=== PATIENT | male | born 1940 | race Caucasian/White ===

== ENCOUNTER 2019-11-02 13:56 | Emergency (ER) | payer OTHER ==
[~2019-11-02] VITALS: Ht 177.8 cm; Wt 79.4 kg
[2019-11-02 14:00] VITALS: BP_SYST 140
--- NOTE | 2019-11-02 16:10 | NUR ---
Patient to ER bed 03 to gown for evaluation. Side rails up. Report given to REGINA WILLIAMSON
--- NOTE | 2019-11-02 16:11 | NUR ---
Patient BIBA from [facility] s/o abrasion after an unwitnessed fall. Patient denies any SOB or pain. No signs or symptoms of acute distress noted.
--- NOTE | 2019-11-02 16:12 | NUR ---
ER Dr. Andrade at bedside examining patient.
[2019-11-02 16:44] LABS: BASOPHILS % (AUTO) 0.2 % (0.0-2.0); EOSINOPHILS % (AUTO) 0.3 % (0.0-4.0); HEMATOCRIT 33.7 % (36-54); HEMOGLOBIN 10.9 g/dL (14.0-18.0); LYMPHOCYTES # (AUTO) 2.7 K/uL (1.0-5.5); LYMPHOCYTES % (AUTO) 37.5 % (20.5-51.5); MEAN CORPUSCULAR HEMOGLOBIN 27 pg (27-31); MEAN CORPUSCULAR HGB CONC 32 % (32-36); MEAN CORPUSCULAR VOLUME 83 fL (79.0-98.0); MONOCYTES # (AUTO) 0.5 K/uL (0.0-1.0); MONOCYTES % (AUTO) 6.4 % (1.7-9.3); NEUTROPHILS % (AUTO) 55.6 % (40.0-70.0); PLATELET COUNT (AUTO) 300 K/uL (130-430); RED BLOOD CELL COUNT(AUTO) 4.06 MIL/uL (4.2-6.2); RED CELL DISTRIBUTION WIDTH 18.1 % (9.0-15.0); WHITE BLOOD COUNT (AUTO) 7.1 K/uL (4.8-10.8)
[2019-11-02] MEDS ORDERED: LIDOCAINE/EPI 2% 1:100000 20 ML VIAL INJ ONE (16:45)
[2019-11-02 16:57] LABS: INR 1.1 (0.80-1.20); PROTHROMBIN TIME 10.9 SECS (9.5-12.5)
[2019-11-02 17:02] LABS: ANION GAP 4 (5-15); CALCIUM 7.5 mg/dL (8.4-11.0); CHLORIDE 102 mmol/L (98-107); GLUCOSE 104 mg/dL (70-99); POTASSIUM 4.1 mmol/L (3.5-5.1); SODIUM SERUM 134 mmol/L (136-145); UREA NITROGEN, BLOOD 11 mg/dL (8-21)
[2019-11-02 17:09] LABS: ALANINE AMINOTRANSFERASE 23 U/L (12-78); ALBUMIN 1.1 g/dL (3.4-4.8); ASPARTATE AMINOTRANSFERASE 25 U/L (10-37); FREE T4 (FREE THYROXINE) 1.3 ng/dl (0.8-1.5); TOTAL BILIRUBIN 0.4 mg/dL (0.0-1.0)
[2019-11-02 17:13] LABS: ALCOHOL, BLOOD < 3 mg/dL (<10)
[2019-11-02] MEDS ORDERED: NS 500 ML IV ONE (17:45)
--- NOTE | 2019-11-02 18:00 | NUR ---
Patient to be transferred back to [facility]. [facility] has been called for transfer. ETA is [id number].
[2019-11-02] MEDS ORDERED: BACITRACIN 1 GM OINT TP ONE (18:44)
--- NOTE | 2019-11-02 19:12 | NUR ---
Endorsed bedside report to Juanpablo TAPIA for continuation of care.
--- NOTE | 2019-11-02 19:22 | NUR ---
Lactic acid is 5.2. Dr. Andrade is aware. Per MD, patient is stable and will be transferred back to [facility] and there are no signs of sepsis.
[2019-11-02 20:10] VITALS: BP_SYST 144
--- NOTE | 2019-11-02 20:10 | NUR ---
Patient given written and verbal discharge instructions and verbalizes understanding. ER MD discussed with patient the results and treatment provided. Patient in stable condition. ID arm band removed. Patient educated on pain management and to follow up with PMD. Pain Scale 0/10 Opportunity for questions provided and answered.
== END 2019-11-02 20:10 | disposition home or self-care (01) ==
LOC: SED 13:56
DX: S01.112A Laceration without foreign body of left eyelid and periocular area, initial encounter (principal); I25.10 Atherosclerotic heart disease of native coronary artery without angina pectoris; W18.39XA Other fall on same level, initial encounter; Y93.89 Activity, other specified; Y92.89 Other specified places as the place of occurrence of the external cause; Y99.8 Other external cause status
CPT/HCPCS: 12013; 36415; 70450; 71045; 74018; 80053; 82140; 83605; 83880; 84439; 84484; 85025; 85610; 87040; 93005; 99284; G0482; J7040

== ENCOUNTER 2020-04-23 03:45 | Inpatient (IN) | payer OTHER, SELFPAY ==
[~2020-04-23] VITALS: Ht 182.9 cm; Wt 54.0 kg
[2020-04-23 03:56] VITALS: BP_SYST 111
[2020-04-23] MEDS ORDERED: BACL10TA PO (04:06)
[2020-04-23] MEDS ORDERED: LIP10 PO (04:06)
[2020-04-23] MEDS ORDERED: CEL20 PO ×2 (04:07→04:33)
[2020-04-23] MEDS ORDERED: MOM PO (04:33)
[2020-04-23] MEDS ORDERED: MELA3TAB64 PO (04:33)
[2020-04-23] MEDS ORDERED: FURO20TA4 PO (04:33)
[2020-04-23] MEDS ORDERED: NITR0.4T47 SL (04:33)
[2020-04-23] MEDS ORDERED: MULT-1184 PO (04:33)
[2020-04-23] MEDS ORDERED: PROMOD PO (04:33)
[2020-04-23] MEDS ORDERED: POTASSIUM CHLORIDE PO (04:33)
[2020-04-23] MEDS ORDERED: NA P133E41 RC (04:33)
[2020-04-23] MEDS ORDERED: NIAC500T23 PO (04:33)
[2020-04-23] MEDS ORDERED: MAGN200T9 PO (04:33)
[2020-04-23] MEDS ORDERED: DOCU-192 PO (04:33)
[2020-04-23] MEDS ORDERED: BISCOLAX RC (04:33)
[2020-04-23] MEDS ORDERED: MIRT15TA3 PO (04:33)
[2020-04-23] MEDS ORDERED: SODI1TAB3 PO (04:34)
[2020-04-23] MEDS ORDERED: TRAM50TA2 PO (04:34)
[2020-04-23] MEDS ORDERED: SENN8.6T19 PO (04:34)
[2020-04-23] MEDS ORDERED: NACL 0.9% 1,000 ML IV ONE ×2 (04:44→07:30)
[2020-04-23] MEDS ORDERED: REM15 PO (04:57)
[2020-04-23] MEDS ORDERED: ACET-2165 PO (04:57)
[2020-04-23] MEDS ORDERED: MORPHINE 2 MG/ML INJ. SYRINGE IVP ONE (05:30)
[2020-04-23 06:36] LABS: ANION GAP 10 (5-15); CALCIUM 8.7 mg/dL (8.4-11.0); CHLORIDE 107 mmol/L (98-107); CREATININE 2.05 mg/dL (0.55-1.30); GLUCOSE 224 mg/dL (70-99); POTASSIUM 4.1 mmol/L (3.5-5.1); SODIUM SERUM 140 mmol/L (136-145); UREA NITROGEN, BLOOD 42 mg/dL (8-21)
[2020-04-23 06:38] LABS: INR 1.3 (0.80-1.20); PROTHROMBIN TIME 12.5 SECS (9.5-12.5)
[2020-04-23 06:39] LABS: BASOPHILS % (AUTO) 0.2 % (0.0-2.0); HEMATOCRIT 40.7 % (36-54); HEMOGLOBIN 12.7 g/dL (14.0-18.0); LYMPHOCYTES # (AUTO) 0.7 K/uL (1.0-5.5); LYMPHOCYTES % (AUTO) 18.4 % (20.5-51.5); MEAN CORPUSCULAR HEMOGLOBIN 26 pg (27-31); MEAN CORPUSCULAR HGB CONC 31 % (32-36); MEAN CORPUSCULAR VOLUME 84 fL (79.0-98.0); MONOCYTES # (AUTO) 0.7 K/uL (0.0-1.0); MONOCYTES % (AUTO) 16.9 % (1.7-9.3); NEUTROPHILS # (AUTO) 2.6 K/uL (1.8-7.7); NEUTROPHILS % (AUTO) 64.5 % (40.0-70.0); PLATELET COUNT (AUTO) 131 K/uL (130-430); RED BLOOD CELL COUNT(AUTO) 4.85 MIL/uL (4.2-6.2); RED CELL DISTRIBUTION WIDTH 21.1 % (9.0-15.0)
[2020-04-23 06:50] LABS: ALANINE AMINOTRANSFERASE 27 U/L (12-78); AMYLASE 92 U/L (0-100); ASPARTATE AMINOTRANSFERASE 36 U/L (10-37); LIPASE 162 U/L (73-393); TOTAL BILIRUBIN 0.5 mg/dL (0.0-1.0)
[2020-04-23] MEDS ORDERED: MORPHINE 4 MG/ML INJ. SYRINGE IVP ONE (07:15)
[2020-04-23] MEDS ORDERED: cefTRIAXone 1 GM in D5W 50 ML IV ONE (07:30)
[2020-04-23] MEDS ORDERED: cefTRIAXone 1 GM VIAL ONE (08:16)
[2020-04-23] MEDS ORDERED: LIDOCAINE 1% 10 MG/ML, 20 ML MDV SUBCUT ONE (08:30)
[2020-04-23 09:30] VITALS: BP_SYST 110
[2020-04-23] MEDS ORDERED: METOCLOPRAMIDE HCL 10 MG/2 ML VIAL IVP PRN (11:00)
[2020-04-23] MEDS ORDERED: MORPHINE 4 MG/ML INJ. SYRINGE IVP PRN (11:00)
[2020-04-23] MEDS ORDERED: ACETAMINOPHEN 325 MG TABLET PO PRN ×2 (11:00→11:15)
[2020-04-23] MEDS ORDERED: ONDANSETRON HCL 4 MG/2 ML VIAL IVP PRN (11:00)
[2020-04-23] MEDS ORDERED: LEVOFLOXACIN 500 MG/D5W 100 ML IV ONE (11:00)
[2020-04-23] MEDS ORDERED: metroNIDAZOLE 500 mg/NS 100 ML IV ONE (11:00)
[2020-04-23 11:37] LABS: HEMOGLOBIN 11.8 g/dL (14.0-18.0)
[2020-04-23] MEDS: NACL 0.9% 1,000 ML IV SCH ×2 (11:52→21:26)
[2020-04-23 12:00] VITALS: BP_SYST 101
[2020-04-23 16:46] VITALS: BP_SYST 96
[2020-04-23 19:51] LABS: HEMATOCRIT 37.1 % (36-54); HEMOGLOBIN 11.5 g/dL (14.0-18.0)
[2020-04-23 20:00] VITALS: BP_SYST 94
[2020-04-23] MEDS: ATORVASTATIN 10 MG TABLET PO SCH (21:25)
[2020-04-23] MEDS: metroNIDAZOLE 500 mg/NS 100 ML IV SCH (21:26)
[2020-04-24 00:54] VITALS: BP_SYST 103
[2020-04-24 03:53] LABS: BASOPHILS % (AUTO) 0.1 % (0.0-2.0); HEMOGLOBIN 11.2 g/dL (14.0-18.0); LYMPHOCYTES # (AUTO) 1.2 K/uL (1.0-5.5); MEAN CORPUSCULAR HGB CONC 31 % (32-36); MONOCYTES # (AUTO) 0.7 K/uL (0.0-1.0)
[2020-04-24 04:11] LABS: ALANINE AMINOTRANSFERASE 19 U/L (12-78); ALBUMIN 1.6 g/dL (3.4-4.8); ANION GAP 10 (5-15); ASPARTATE AMINOTRANSFERASE 26 U/L (10-37); CALCIUM 7.5 mg/dL (8.4-11.0); CHLORIDE 111 mmol/L (98-107); CREATININE 1.64 mg/dL (0.55-1.30); GLUCOSE 104 mg/dL (70-99); POTASSIUM 4.1 mmol/L (3.5-5.1); SODIUM SERUM 142 mmol/L (136-145); TOTAL BILIRUBIN 0.5 mg/dL (0.0-1.0); UREA NITROGEN, BLOOD 45 mg/dL (8-21)
[2020-04-24 04:49] LABS: HEMATOCRIT 35.7 % (36-54); LYMPHOCYTES % (AUTO) 24.1 % (20.5-51.5); MEAN CORPUSCULAR HEMOGLOBIN 27 pg (27-31); MEAN CORPUSCULAR VOLUME 85 fL (79.0-98.0); MONOCYTES % (AUTO) 12.8 % (1.7-9.3); NEUTROPHILS # (AUTO) 3.2 K/uL (1.8-7.7); PLATELET COUNT (AUTO) 96 K/uL (130-430)
[2020-04-24 04:56] LABS: WHITE BLOOD COUNT (AUTO) 5.1 K/uL (4.8-10.8)
[2020-04-24] MEDS: metroNIDAZOLE 500 mg/NS 100 ML IV SCH ×3 (05:45→22:09)
[2020-04-24 08:00] VITALS: BP_SYST 102
[2020-04-24] MEDS: CITALOPRAM HYDROBROMIDE 20 MG TABLET PO SCH (09:45)
[2020-04-24 11:02] LABS: HEMATOCRIT 34.5 % (36-54); HEMOGLOBIN 10.8 g/dL (14.0-18.0)
[2020-04-24] MEDS: NACL 0.9% 1,000 ML IV SCH (11:55)
[2020-04-24 12:10] VITALS: BP_SYST 101
[2020-04-24 16:24] VITALS: BP_SYST 96
[2020-04-24 19:36] LABS: HEMOGLOBIN 10.5 g/dL (14.0-18.0)
[2020-04-24 20:00] VITALS: BP_SYST 99
[2020-04-24] MEDS: ATORVASTATIN 10 MG TABLET PO SCH (22:08)
[2020-04-24] MEDS: NYSTATIN 15 GM TOPICAL POWDER TP SCH (22:49)
[2020-04-25 00:37] VITALS: BP_SYST 98
[2020-04-25] MEDS: NACL 0.9% 1,000 ML IV SCH ×2 (01:15→14:44)
[2020-04-25] MEDS: metroNIDAZOLE 500 mg/NS 100 ML IV SCH ×3 (06:11→21:08)
[2020-04-25 06:57] LABS: BASOPHILS % (AUTO) 0.2 % (0.0-2.0); EOSINOPHILS % (AUTO) 0.1 % (0.0-4.0); HEMATOCRIT 31.6 % (36-54); HEMOGLOBIN 9.9 g/dL (14.0-18.0); LYMPHOCYTES # (AUTO) 1.5 K/uL (1.0-5.5); LYMPHOCYTES % (AUTO) 17.1 % (20.5-51.5); MEAN CORPUSCULAR HEMOGLOBIN 27 pg (27-31); MEAN CORPUSCULAR HGB CONC 31 % (32-36); MEAN CORPUSCULAR VOLUME 85 fL (79.0-98.0); MONOCYTES # (AUTO) 0.7 K/uL (0.0-1.0); MONOCYTES % (AUTO) 8.3 % (1.7-9.3); NEUTROPHILS # (AUTO) 6.4 K/uL (1.8-7.7); NEUTROPHILS % (AUTO) 74.3 % (40.0-70.0); PLATELET COUNT (AUTO) 87 K/uL (130-430); RED BLOOD CELL COUNT(AUTO) 3.71 MIL/uL (4.2-6.2); RED CELL DISTRIBUTION WIDTH 20.8 % (9.0-15.0); WHITE BLOOD COUNT (AUTO) 8.7 K/uL (4.8-10.8)
[2020-04-25 07:09] LABS: ALANINE AMINOTRANSFERASE 24 U/L (12-78); ALBUMIN 1.6 g/dL (3.4-4.8); ANION GAP 14 (5-15); ASPARTATE AMINOTRANSFERASE 25 U/L (10-37); CALCIUM 7.9 mg/dL (8.4-11.0); CHLORIDE 114 mmol/L (98-107); GLUCOSE 80 mg/dL (70-99); SODIUM SERUM 145 mmol/L (136-145); TOTAL BILIRUBIN 0.5 mg/dL (0.0-1.0); UREA NITROGEN, BLOOD 52 mg/dL (8-21)
[2020-04-25 08:00] VITALS: BP_SYST 94
[2020-04-25] MEDS: CITALOPRAM HYDROBROMIDE 20 MG TABLET PO SCH (08:53)
[2020-04-25] MEDS: NYSTATIN 15 GM TOPICAL POWDER TP SCH ×2 (09:00→20:10)
[2020-04-25] MEDS: MORPHINE 2 MG/ML INJ. SYRINGE IVP PRN ×2 (11:25→16:18)
[2020-04-25] MEDS: LEVOFLOXACIN 500 MG/D5W 100 ML IV SCH (11:28)
[2020-04-25 12:20] VITALS: BP_SYST 101
[2020-04-25 16:23] VITALS: BP_SYST 98
[2020-04-25 19:09] LABS: HEMATOCRIT 30.4 % (36-54); HEMOGLOBIN 9.5 g/dL (14.0-18.0)
[2020-04-25 20:00] VITALS: BP_SYST 91
[2020-04-25] MEDS: ATORVASTATIN 10 MG TABLET PO SCH (20:09)
[2020-04-25] MEDS ORDERED: HYDROcodone/ACETAMIN 5-325 MG TAB (NORCO/ VICODIN) PO PRN (21:45)
[2020-04-26 01:17] VITALS: BP_SYST 91
[2020-04-26 03:00] VITALS: BP_SYST 80
[2020-04-26] MEDS ORDERED: NS 500 ML IV ONE (03:15)
[2020-04-26] MEDS: NACL 0.9% 1,000 ML IV SCH ×2 (03:42→09:31)
[2020-04-26] MEDS: metroNIDAZOLE 500 mg/NS 100 ML IV SCH ×2 (05:43→13:54)
[2020-04-26 05:45] VITALS: BP_SYST 100
[2020-04-26 06:26] LABS: ANION GAP 8 (5-15); C-REACTIVE PROTEIN QUANT 9.5 mg/dL (0-0.5); CALCIUM 7.2 mg/dL (8.4-11.0); CHLORIDE 113 mmol/L (98-107); CREATININE 1.59 mg/dL (0.55-1.30); GLUCOSE 144 mg/dL (70-99); POTASSIUM 3.3 mmol/L (3.5-5.1); SODIUM SERUM 141 mmol/L (136-145); UREA NITROGEN, BLOOD 46 mg/dL (8-21)
[2020-04-26 06:43] LABS: BASOPHILS % (AUTO) 0.1 % (0.0-2.0); EOSINOPHILS # (AUTO) 0.1 K/uL (0.0-0.4); EOSINOPHILS % (AUTO) 1.5 % (0.0-4.0); HEMATOCRIT 28.9 % (36-54); HEMOGLOBIN 9.1 g/dL (14.0-18.0); LYMPHOCYTES # (AUTO) 1.3 K/uL (1.0-5.5); LYMPHOCYTES % (AUTO) 22.4 % (20.5-51.5); MEAN CORPUSCULAR HEMOGLOBIN 27 pg (27-31); MEAN CORPUSCULAR HGB CONC 31 % (32-36); MEAN CORPUSCULAR VOLUME 85 fL (79.0-98.0); MONOCYTES # (AUTO) 0.4 K/uL (0.0-1.0); MONOCYTES % (AUTO) 7.4 % (1.7-9.3); NEUTROPHILS % (AUTO) 68.6 % (40.0-70.0); PLATELET COUNT (AUTO) 74 K/uL (130-430); RED BLOOD CELL COUNT(AUTO) 3.41 MIL/uL (4.2-6.2); RED CELL DISTRIBUTION WIDTH 21.1 % (9.0-15.0); WHITE BLOOD COUNT (AUTO) 5.8 K/uL (4.8-10.8)
[2020-04-26 08:00] VITALS: BP_SYST 93
[2020-04-26 08:24] LABS: ERYTHROCYTE SEDIMENTATION RATE 10 MM/HR (0-15)
[2020-04-26] MEDS: CITALOPRAM HYDROBROMIDE 20 MG TABLET PO SCH (09:25)
[2020-04-26] MEDS: NYSTATIN 15 GM TOPICAL POWDER TP SCH (09:27)
[2020-04-26] MEDS: LEVOFLOXACIN 500 MG/D5W 100 ML IV SCH (11:53)
[2020-04-26 12:36] VITALS: BP_SYST 99
[2020-04-26] MEDS ORDERED: POTASSIUM CHLORIDE 20 MEQ TAB.PRT.SR PO ONE (13:00)
[2020-04-26 17:13] VITALS: BP_SYST 96
== END 2020-04-26 21:00 | DRG 391 ==
LOC: SED 03:45 → EEVIPCON 09:04 → SMU 09:04
PROVIDERS: ADMIT Internal Medicine Hospice and Palliative Medicine; ATTEND Internal Medicine Hospice and Palliative Medicine
DX: K52.9 Noninfective gastroenteritis and colitis, unspecified (principal); E43 Unspecified severe protein-calorie malnutrition; J18.9 Pneumonia, unspecified organism; Z68.1 Body mass index [BMI] 19.9 or less, adult; J91.8 Pleural effusion in other conditions classified elsewhere; K92.1 Melena; K56.7 Ileus, unspecified; N18.9 Chronic kidney disease, unspecified; D69.6 Thrombocytopenia, unspecified; I25.10 Atherosclerotic heart disease of native coronary artery without angina pectoris; Z95.1 Presence of aortocoronary bypass graft; Z79.899 Other long term (current) drug therapy; Z03.818 Encounter for observation for suspected exposure to other biological agents ruled out
CPT/HCPCS: 36415; 80048; 80053; 82150-TC; 83605; 83690-TC; 85018-TC; 85025; 85610-TC; 85651-TC; 86140; 87040-TC; 87081; 93005; 96361; 96365; 96375; 99285; J0696; J1956; J2270; J2405; J3490; J7030; J7040; U0003-CS

== ENCOUNTER 2020-05-01 22:31 | Inpatient (IN) | payer OTHER, SELFPAY ==
[~2020-05-01] VITALS: Ht 182.9 cm; Wt 60.3 kg
[2020-05-01 22:31] VITALS: BP_SYST 100
[~2020-05-01 22:31] MED LIST: ACET-2165 PO; BACL10TA PO; BISCOLAX RC; CEL20 PO; DOCU-192 PO; FURO20TA4 PO; LIP10 PO; MAGN200T9 PO; MELA3TAB64 PO; MIRT15TA3 PO; MOM PO; MULT-1184 PO; NA P133E41 RC; NIAC500T23 PO; NITR0.4T47 SL; POTASSIUM CHLORIDE PO; PROMOD PO; REM15 PO; SENN8.6T19 PO; SODI1TAB3 PO; TRAM50TA2 PO
[2020-05-01] MEDS ORDERED: FAMOTIDINE PF 20 MG/2 ML VIAL IVP ONE (22:45)
[2020-05-02] VITALS (7 sets, daily range): BP systolic 57–119
[2020-05-02 00:14] LABS: BASOPHILS % (AUTO) 0.2 % (0.0-2.0); EOSINOPHILS % (AUTO) 0.1 % (0.0-4.0); HEMATOCRIT 34.2 % (36-54); HEMOGLOBIN 10.4 g/dL (14.0-18.0); MEAN CORPUSCULAR HEMOGLOBIN 26 pg (27-31); MEAN CORPUSCULAR HGB CONC 31 % (32-36); MEAN CORPUSCULAR VOLUME 86 fL (79.0-98.0); MONOCYTES # (AUTO) 0.8 K/uL (0.0-1.0); MONOCYTES % (AUTO) 4.6 % (1.7-9.3); NEUTROPHILS % (AUTO) 84.1 % (40.0-70.0); PLATELET COUNT (AUTO) 117 K/uL (130-430); RED BLOOD CELL COUNT(AUTO) 3.99 MIL/uL (4.2-6.2); RED CELL DISTRIBUTION WIDTH 20.5 % (9.0-15.0); WHITE BLOOD COUNT (AUTO) 17.9 K/uL (4.8-10.8)
[2020-05-02 00:23] LABS: ANION GAP 10 (5-15); CALCIUM 7.2 mg/dL (8.4-11.0); CHLORIDE 111 mmol/L (98-107); CREATININE 1.67 mg/dL (0.55-1.30); GLUCOSE 140 mg/dL (70-99); SODIUM SERUM 139 mmol/L (136-145); UREA NITROGEN, BLOOD 42 mg/dL (8-21)
[2020-05-02 00:28] LABS: INR 1.8 (0.80-1.20)
[2020-05-02] MEDS ORDERED: PIPERACILLIN/TAZO 3.375 GM in NS 50 ML IV ONE (00:30)
[2020-05-02] MEDS ORDERED: NACL 0.9% 1,000 ML IV ONE ×3 (00:30→22:10)
[2020-05-02 00:40] LABS: ALANINE AMINOTRANSFERASE 63 U/L (12-78); ALBUMIN 1.6 g/dL (3.4-4.8); ASPARTATE AMINOTRANSFERASE 130 U/L (10-37); LIPASE 925 U/L (73-393); TOTAL BILIRUBIN 0.4 mg/dL (0.0-1.0)
[2020-05-02] MEDS ORDERED: VANCOMYCIN HCL 1,000 MG in NS 250 ML IV ONE (00:45)
[2020-05-02] MEDS ORDERED: PIPERACILLIN/TAZOBACTAM 3.375 GM/VIAL (ZOSYN) IV ONE ×2 (00:48→06:24)
[2020-05-02] MEDS ORDERED: VANCOMYCIN HCL 1000 MG/VIAL IV ONE (01:00)
[2020-05-02] MEDS ORDERED: MORPHINE 2 MG/ML INJ. SYRINGE IVP ONE (01:00)
[2020-05-02] MEDS ORDERED: HYOS0.1275 PO (01:05)
[2020-05-02] MEDS ORDERED: ONDA4TAB5 PO (01:05)
[2020-05-02] MEDS ORDERED: LACT1CAP61 PO (01:13)
[2020-05-02] MEDS ORDERED: DRON5CAP15 PO (01:13)
[2020-05-02] MEDS ORDERED: FLA250 PO (01:13)
[2020-05-02] MEDS ORDERED: FURO-150 PO (01:13)
[2020-05-02 01:17] LABS: BILIRUBIN,URINE 2+ (NEGATIVE); BLOOD, URINE NEGATIVE (NEGATIVE); CLARITY/URINE SL CLOUDY (CLEAR); COLOR,URINE YELLOW (YELLOW); GLUCOSE,URINE NEGATIVE (NEGATIVE); KETONES,URINE NEGATIVE (NEGATIVE); LEUKOCYTE ESTERASE ,URINE TRACE (NEGATIVE); NITRITE, URINE POSITIVE (NEGATIVE); PROTEIN URINE TRACE (NEGATIVE); UROBILINOGEN,URINE 0.2 (0.2-1.0)
[2020-05-02] MEDS ORDERED: ONDANSETRON HCL 4 MG/2 ML VIAL IVP PRN (01:30)
[2020-05-02] MEDS ORDERED: ACETAMINOPHEN 325 MG TABLET PO PRN (01:30)
[2020-05-02] MEDS ORDERED: MILK OF MAGNESIA 30 ML UDC PO SCH (01:45)
[2020-05-02] MEDS: metroNIDAZOLE 250 MG TABLET PO SCH ×4 (01:45→21:06)
[2020-05-02] MEDS ORDERED: MORPHINE 2 MG/ML INJ. SYRINGE IVP PRN (01:45)
[2020-05-02] MEDS ORDERED: BACLOFEN 10 MG TABLET PO PRN (01:45)
[2020-05-02] MEDS ORDERED: ONDANSETRON 4 MG ODT TAB PO PRN (01:45)
[2020-05-02] MEDS ORDERED: NITROGLYCERIN 0.4 MG TAB.SUBL SL PRN (01:45)
[2020-05-02 01:52] LABS: PROTHROMBIN TIME 17.9 SECS (9.5-12.5)
[2020-05-02 02:02] LABS: RBC,URINE 0-3 /HPF (0-3)
[2020-05-02 02:07] LABS: BACTERIA,URINE MODERATE /HPF (None Seen); CALCIUM OXALATE CRYSTALS,UR 0-10 /HPF (None Seen)
[2020-05-02] MEDS: PIPERACILLIN/TAZO 3.375/DEX-IS 50 ML IV SCH ×3 (06:39→17:33)
[2020-05-02 07:42] LABS: HEMATOCRIT 33.9 % (36-54); HEMOGLOBIN 10.2 g/dL (14.0-18.0); LYMPHOCYTES # (AUTO) 1.7 K/uL (1.0-5.5); LYMPHOCYTES % (AUTO) 7.3 % (20.5-51.5); MEAN CORPUSCULAR HEMOGLOBIN 26 pg (27-31); MEAN CORPUSCULAR HGB CONC 30 % (32-36); MEAN CORPUSCULAR VOLUME 87 fL (79.0-98.0); MONOCYTES # (AUTO) 0.7 K/uL (0.0-1.0); MONOCYTES % (AUTO) 2.9 % (1.7-9.3); NEUTROPHILS # (AUTO) 21.5 K/uL (1.8-7.7); NEUTROPHILS % (AUTO) 89.8 % (40.0-70.0); PLATELET COUNT (AUTO) 102 K/uL (130-430); RED BLOOD CELL COUNT(AUTO) 3.92 MIL/uL (4.2-6.2); RED CELL DISTRIBUTION WIDTH 20.2 % (9.0-15.0); WHITE BLOOD COUNT (AUTO) 23.9 K/uL (4.8-10.8)
[2020-05-02 07:59] LABS: ANION GAP 14 (5-15); CALCIUM 7.1 mg/dL (8.4-11.0); CHLORIDE 112 mmol/L (98-107); CREATININE 1.85 mg/dL (0.55-1.30); GLUCOSE 121 mg/dL (70-99); POTASSIUM 4.6 mmol/L (3.5-5.1); SODIUM SERUM 141 mmol/L (136-145); UREA NITROGEN, BLOOD 44 mg/dL (8-21)
[2020-05-02 08:03] LABS: ALANINE AMINOTRANSFERASE 60 U/L (12-78); ALBUMIN 1.6 g/dL (3.4-4.8); ASPARTATE AMINOTRANSFERASE 120 U/L (10-37); HDL CHOLESTEROL 13 mg/dL (>45); LDL CHOLESTEROL 8 mg/dL (<100); TOTAL BILIRUBIN 0.6 mg/dL (0.0-1.0); TRIGLYCERIDES 105 mg/dL (30-150)
[2020-05-02] MEDS: PANTOPRAZOLE SODIUM 40 MG/VIAL (PROTONIX) IVP SCH ×2 (08:07→21:07)
[2020-05-02] MEDS: DOCUSATE SODIUM 100 MG CAPSULE PO SCH ×2 (08:07→21:06)
[2020-05-02] MEDS: DRONABINOL 2.5 MG CAPSULE PO SCH ×2 (08:07→21:06)
[2020-05-02 08:25] LABS: CHOLESTEROL < 50 mg/dL (<200)
[2020-05-02] MEDS ORDERED: NS 500 ML IV ONE (08:30)
[2020-05-02] MEDS: HEPARIN SODIUM,PORCINE 5000 UNITS/ML VIAL SUBCUT SCH ×2 (10:13→21:10)
[2020-05-02] MEDS: NACL 0.9% 1,000 ML IV SCH ×2 (10:14→17:33)
[2020-05-02] MEDS ORDERED: BALSAM PERU/CASTOR OIL 60 GM OINT...G. TP ONE (18:30)
[2020-05-02] MEDS ORDERED: MIRTAZAPINE 15 MG TABLET PO SCH (21:00)
[2020-05-02] MEDS ORDERED: ATORVASTATIN 10 MG TABLET PO SCH (21:00)
[2020-05-02] MEDS ORDERED: MELATONIN 3 MG TABLET PO SCH (21:00)
[2020-05-02 23:52] LABS: ANION GAP 16 (5-15); CREATININE 1.56 mg/dL (0.55-1.30); GLUCOSE 54 mg/dL (70-99); SODIUM SERUM 145 mmol/L (136-145); UREA NITROGEN, BLOOD 36 mg/dL (8-21)
[2020-05-03] VITALS (11 sets, daily range): BP systolic 59–148
[2020-05-03] MEDS ORDERED: SODIUM BICARBONATE 8.4% JECT 150 MEQ in D5W 1,000 ML IV SCH ×2
[2020-05-03] MEDS ORDERED: SODIUM BICARBONATE 8.4% JECT 50 MEQ/50 ML SYRINGE IVP ONE
[2020-05-03] MEDS ORDERED: NOREPINEPHRINE 4 MG/4 ML VIAL IV ONE ×3 (00:07→05:19)
[2020-05-03 00:09] LABS: ALANINE AMINOTRANSFERASE 446 U/L (12-78); ASPARTATE AMINOTRANSFERASE 1780 U/L (10-37); TOTAL BILIRUBIN 0.5 mg/dL (0.0-1.0)
[2020-05-03 00:11] LABS: CHLORIDE 120 mmol/L (98-107); POTASSIUM 5.8 mmol/L (3.5-5.1)
[2020-05-03] MEDS: NOREPINEPHRINE BITARTRATE 4 MG in D5W 246 ML IV PRN ×2 (00:22→05:14)
[2020-05-03] MEDS ORDERED: SODIUM BICARBONATE 8.4% JECT 50 MEQ/50 ML SYRINGE ONE (00:24)
[2020-05-03] MEDS ORDERED: MIDAZOLAM HCL IN 0.9 % NACL/PF 50 ML IV PRN (01:30)
[2020-05-03] MEDS ORDERED: MIDAZOLAM HCL IN 0.9 % NACL/PF 50 ML IV ONE (01:37)
[2020-05-03] MEDS: NACL 0.9% 1,000 ML IV SCH (04:30)
[2020-05-03] MEDS: PIPERACILLIN/TAZO 3.375/DEX-IS 50 ML IV SCH ×2 (05:13)
[2020-05-03] MEDS: metroNIDAZOLE 250 MG TABLET PO SCH (05:15)
[2020-05-03] MEDS ORDERED: EPINEPHrine JECT 0.1 MG/ML SYR IVP ONE (07:51)
[2020-05-03] MEDS ORDERED: NORMAL SALINE 10 ML VIAL IVP ONE (07:51)
[2020-05-03] MEDS ORDERED: PHENYLEPHRINE HCL 30 MG in NS 247 ML IV PRN (08:00)
[2020-05-03 08:33] LABS: BASOPHILS # (AUTO) 0.1 K/uL (0.0-0.2); HEMOGLOBIN 7.1 g/dL (14.0-18.0); MEAN CORPUSCULAR HEMOGLOBIN 26 pg (27-31)
[2020-05-03 08:58] LABS: BASOPHILS % (AUTO) 0.6 % (0.0-2.0); HEMATOCRIT 26.5 % (36-54); LYMPHOCYTES # (AUTO) 3.7 K/uL (1.0-5.5); LYMPHOCYTES % (AUTO) 15.1 % (20.5-51.5); MEAN CORPUSCULAR HGB CONC 27 % (32-36); MEAN CORPUSCULAR VOLUME 98 fL (79.0-98.0); MONOCYTES # (AUTO) 0.9 K/uL (0.0-1.0); MONOCYTES % (AUTO) 3.7 % (1.7-9.3); NEUTROPHILS # (AUTO) 19.5 K/uL (1.8-7.7); NEUTROPHILS % (AUTO) 80.6 % (40.0-70.0); PLATELET COUNT (AUTO) 72 K/uL (130-430); RED CELL DISTRIBUTION WIDTH 22.1 % (9.0-15.0); WHITE BLOOD COUNT (AUTO) 24.2 K/uL (4.8-10.8)
[2020-05-03] MEDS ORDERED: BALSAM PERU/CASTOR OIL 60 GM OINT...G. TP SCH (09:00)
[2020-05-03 09:07] LABS: ALANINE AMINOTRANSFERASE 1866 U/L (12-78); ANION GAP 20 (5-15); CHLORIDE 108 mmol/L (98-107); CREATININE 2.11 mg/dL (0.55-1.30); GLUCOSE 167 mg/dL (70-99); SODIUM SERUM 137 mmol/L (136-145); THYROID STIMULATING HORMONE 2.29 uIu/mL (0.36-3.74); TOTAL BILIRUBIN 0.9 mg/dL (0.0-1.0); UREA NITROGEN, BLOOD 45 mg/dL (8-21)
[2020-05-03 09:25] LABS: POTASSIUM 10.4 mmol/L (3.5-5.1)
[2020-05-03 09:26] LABS: CALCIUM 6.3 mg/dL (8.4-11.0)
[2020-05-03 09:34] LABS: PROTHROMBIN TIME 48.7 SECS (9.5-12.5)
== END 2020-05-03 07:52 | disposition expired | DRG 871 ==
LOC: SED 22:31 → STU 05-02 01:18 → SIC 05-02 22:29
PROVIDERS: ADMIT Internal Medicine Hospice and Palliative Medicine; ATTEND Internal Medicine Hospice and Palliative Medicine
PROC: 0BH17EZ Insertion of Endotracheal Airway into Trachea, Via Natural or Artificial Opening (ICD-10-PCS; principal; 2020-05-02)
PROC: 5A1935Z Respiratory Ventilation, Less than 24 Consecutive Hours (ICD-10-PCS; 2020-05-02)
PROC: 5A12012 Performance of Cardiac Output, Single, Manual (ICD-10-PCS; 2020-05-02)
PROC: 06HY33Z Insertion of Infusion Device into Lower Vein, Percutaneous Approach (ICD-10-PCS; 2020-05-02)
DX: A41.9 Sepsis, unspecified organism (principal); K85.90 Acute pancreatitis without necrosis or infection, unspecified; E43 Unspecified severe protein-calorie malnutrition; R65.21 Severe sepsis with septic shock; J96.21 Acute and chronic respiratory failure with hypoxia; J69.0 Pneumonitis due to inhalation of food and vomit; I21.A1 Myocardial infarction type 2; D68.9 Coagulation defect, unspecified; E87.2 Acidosis; I48.20 Chronic atrial fibrillation, unspecified; K55.9 Vascular disorder of intestine, unspecified; I96 Gangrene, not elsewhere classified; D61.818 Other pancytopenia; J44.0 Chronic obstructive pulmonary disease with (acute) lower respiratory infection; I42.0 Dilated cardiomyopathy; A04.72 Enterocolitis due to Clostridium difficile, not specified as recurrent; N17.9 Acute kidney failure, unspecified; Z68.1 Body mass index [BMI] 19.9 or less, adult; E78.5 Hyperlipidemia, unspecified; R74.0 Nonspecific elevation of levels of transaminase and lactic acid dehydrogenase [LDH]; F03.90 Unspecified dementia, unspecified severity, without behavioral disturbance, psychotic disturbance, mood disturbance, and anxiety; N28.1 Cyst of kidney, acquired; Z96.643 Presence of artificial hip joint, bilateral; I11.0 Hypertensive heart disease with heart failure; I50.9 Heart failure, unspecified; Z20.828 Contact with and (suspected) exposure to other viral communicable diseases; F32.9 Major depressive disorder, single episode, unspecified; E87.5 Hyperkalemia; Z66 Do not resuscitate; I25.10 Atherosclerotic heart disease of native coronary artery without angina pectoris; I46.9 Cardiac arrest, cause unspecified; Z95.1 Presence of aortocoronary bypass graft; Z87.891 Personal history of nicotine dependence; Z74.01 Bed confinement status; Z79.899 Other long term (current) drug therapy
CPT/HCPCS: 36415; 36600; 71045; 71250-TC; 80053; 80061; 81000-TC; 82803-TC; 82962; 83605; 83690-TC; 83735-TC; 83880; 84443-TC; 84484; 85025; 85610-TC; 85730-TC; 87040-TC; 87070-TC; 87081; 87086; 87205-TC; 92950; 93005; 93306; 93923; 94002; 94003; 94640; 96365; 96366; 96367; 96375; 99285; C1751; C9113; J0171; J1644; J2370; J2543; J3370; J3490; J7030; J7040; J7050; J7060; Q0162; Q0167; U0003-CS